=== PATIENT | male | born 1960 | race Caucasian/White ===

== ENCOUNTER 2020-12-11 13:25 | Emergency (ER) | payer MEDICAID, SELFPAY ==
[2020-12-11 13:43] VITALS: BP 121/80; PULSE 83; RESP 16; TEMP 36.8; O2SAT 96; BMI 22.6
[2020-12-11 13:56] VITALS: BP 201/94; PULSE 77; TEMP 36.8; O2SAT 97
--- NOTE | 2020-12-11 15:10 | ED_ITS ---
HPI - Allergic Reaction General: Chief complaint: Allergic Reaction Stated complaint: allergic rxn Time Seen by Provider: 12/11/20 14:08 Source: patient Mode of arrival: ambulatory Limitations: no limitations History of Present Illness: HPI narrative: Patient is a 60-year-old male who presents to ED today with a complaint of a possible allergic reaction to Bactrim. Patient states he was prescribed this antibiotic recently for a right foot wound. He states he took 1 dose of the antibiotic and approximately 3 to 4 hours later began noticing redness and itching to his palms and forearms as well as swelling to his penis. He states previously he has had a similar reaction to antibiotics with penile swelling. Patient is not having any dysuria or other urinary complaints. No penile drainage. No new sexual partners or concern for STDs. He has not noticed any sores or lesions. MD complaint: allergic reaction Exposure: other (antibiotic) Associated symptoms: Deny abdominal pain, nausea or vomiting Severity: mild Treatment prior to arrival: none Review of Systems Const: Denies: fever(s), chills, body aches, change in appetite, fatigue or malaise Eyes: Denies: change in vision ENMT: Denies: throat pain, odynophagia, swelling of lips/tongue or oral sores Card: Denies: chest pain Resp: Denies: dyspnea GI: Denies: abdominal pain, nausea, vomiting or diarrhea : Reports: other (penile swelling); Denies: flank pain, difficulty urinating, dysuria, urinary frequency, urinary urgency, urinary hesitancy, change in urine stream, urinary incontinence, genital pain, genital lesions, penile discharge, testicular pain, testicular mass or scrotal swelling Musc: Denies: neck pain, back pain, extremity pain or joint pain Skin/Breast: Reports: rash, pruritus, skin swelling (penis) and other (wound to R lateral foot) Neuro: Denies: headache(s), numbness in extremities, weakness in extremities or sensory changes PFSH ED PFSH: Social History Smoking and tobacco status: never smoked Alcohol intake: current Desire information about alcohol rehabilitation?: No Counseling given: No Desire information about substance/drug rehabilitation?: No History of recent travel: No Physical Exam Const: COMMON NORMALS: no acute distress, average body habitus, patient oriented x3, no limitations, healthy appearing, alert and well nourished GENERAL APPEARANCE: cooperative ORIENTATION/CONSCIOUSNESS: Yes awake, Yes oriented to person, Yes oriented to place and Yes oriented to time HENMT: COMMON NORMALS: normocephalic and atraumatic HEAD & SCALP: normocephalic and atraumatic Resp: COMMON NORMALS: normal respiratory effort and clear to auscultation bilaterally AUSCULTATION: clear to auscultation bilaterally Cardio: COMMON NORMALS: regular rate and regular rhythm RATE: regular rate RHYTHM: regular rhythm : COMMON NORMALS: Yes no CVA tenderness and Yes scrotum normal BLADDER/KIDNEY EXAM: Yes no CVA tenderness MALE GROIN/PERINEUM EXAM: No Genital lesions present PENIS: circumcised, edematous (coronal sulcus), not erythematous, no nodules, no papules, no pustules, no vesicles, no ulcerations and No Genital lesions present MEATUS: meatus normal and no meatla discharge SCROTUM: Yes testes descended bilaterally, No erythematous, No edematous and No scrotal swelling TESTES: Yes testicular lie normal Back/Pelvis: COMMON NORMALS: no CVA tenderness Extremity: NARRATIVE EXTREMITY EXAM: small 2cm shallow ulcer to R lateral foot; no surrounding cellulitis; no drainage/odor Neuro: CHEY COMA SCALE: document GCS findings [place] coma scale eye opening: Spontaneous [place] coma scale verbal response: Orientated Chey coma scale motor response: Obey commands [place] coma scale total score: 15 COMMON NORMALS: patient oriented x3, CN's II-XII intact bilaterally, moves all extremities, no focal motor deficits and no sensory deficits noted SENSORIUM/ORIENTATION: Yes alert, Yes oriented to person, Yes oriented to place and Yes oriented to time Skin: NARRATIVE SKIN EXAM: mild redness to bilateral palms/forearms Course Vital Signs: Vital signs: Vital Signs Temperature 98.2 F 12/11/20 13:56 Pulse Rate 77 12/11/20 13:56 Respiratory Rate 16 12/11/20 13:43 Blood Pressure 201/94 12/11/20 13:56 Pulse Oximetry 97 12/11/20 13:56 MDM - Allergic Reaction MDM Narrative: Medical decision making narrative: Patient with redness to his bilateral palms and forearms as well as penile swelling beginning 3 to 4 hours after a dose of Bactrim. Patient states he has had this similar reaction with penile swelling to antibiotics previously. I have never heard of penile swelling as a reaction to sulfa drugs but since symptoms started almost directly after drug initiation we have to assume it is from this. Recommend discontinuing this medication. He does not want to be on other antibiotics. He states he will treat his ulcer with the mupirocin ointment and soaking it in warm soap and water. Patient is very concerned about the penile swelling and he what he can do for this. He is not having any pain. Told patient we could attempt treating him with steroids-he is agreeable to this. Return to ED precautions given. Discharge Plan Discharge Patient Disposition: Home Clinical Impression: Wound of right ankle Qualifiers: Encounter type: initial encounter Qualified Code(s): S91.001A - Unspecified open wound, right ankle, initial encounter Adverse reaction to sulfa antibiotic Qualifiers: Encounter type: initial encounter Qualified Code(s): T37.0X5A - Adverse effect of sulfonamides, initial encounter Condition: Stable Prescriptions: New Medrol (Serg) 4 mg tablets,dose pack See Rx Instructions .ROUTE .COMPLEX Qty: 21 RF: 0 Discontinued sulfamethoxazole-trimethoprim [Bactrim DS] 800-160 mg tablet 1 tab PO BID Qty: 20 RF: 0 No Action ibuprofen 800 mg tablet 800 mg PO Q8H RF: 0 mupirocin 2 % ointment 1 applic topical TID Qty: 22 RF: 0 Discharge Orders: Discharge ED (Routine); Ordered 12/11/20 Ordered By: Marnie Rivas Coding Level of Care Code ED Model Making Supervisor for Silvio Rodríguez
== END 2020-12-11 15:56 | disposition home or self-care (01) ==
PROVIDERS: Emergency Provider Physician Assistant
DX: S91.001A Unspecified open wound, right ankle, initial encounter (principal); T37.0X5A Adverse effect of sulfonamides, initial encounter
CPT/HCPCS: 99281

== ENCOUNTER → 2021-07-14 15:24 | Outpatient (BNVA) | payer MEDICARE, MEDICAID, SELFPAY | PROVIDERS: PCP Nurse Practitioner Family; Visit Provider Nurse Practitioner Family | DX: R51.9 Headache, unspecified (principal); G89.29 Other chronic pain; Z13.6 Encounter for screening for cardiovascular disorders | CPT/HCPCS: 80053; 80061; 84443; 85025 ==

== ENCOUNTER 2021-10-23 20:02 | Emergency (ER) | payer MEDICARE, MEDICAID, SELFPAY ==
[2021-10-23 20:13] VITALS: BP 140/76; PULSE 80; RESP 18; TEMP 36.7; O2SAT 96; BMI 22.1
--- NOTE | 2021-10-23 20:33 | ED_ITS ---
HPI - Wound/Laceration General: Chief Complaint: Wound/Laceration Stated Complaint: neck lac Time Seen by Provider: 10/23/21 20:20 History of Present Illness: Patient is a 60-year-old male comes to the ED with laceration to neck. Injury occurred just prior to arrival. Patient is not giving much information about injury but says a dog caused a laceration on neck. He says the dog is fully vaccinated and has had its rabies vaccination as well. Patient said he needs an updated tetanus shot. Associated symptoms: Denies chills, fever(s), nausea or vomiting Review of Systems Const: Denies: fever(s), chills or fatigue Eyes: Denies: change in vision or eye discomfort ENMT: Denies: throat pain, odynophagia, nasal discharge or nasal congestion Card: Denies: chest pain, palpitations, edema, swelling of feet/ankles, dyspnea on exertion or orthopnea Resp: Denies: dyspnea, productive cough or non-productive cough GI: Denies: abdominal pain, nausea, vomiting, diarrhea, constipation or hematochezia : Denies: flank pain, difficulty urinating, dysuria or hematuria Musc: Denies: neck pain, back pain or extremity swelling Skin/Breast: Reports: new lesions (Laceration to anterior neck); Denies: rash Neuro: Denies: headache(s), numbness in extremities or weakness in extremities PFS ED PFSH: Medical History (Updated 10/24/21 @ 19:17 by ORTEGA Elizabeth) No pertinent family history Surgical History (Updated 10/24/21 @ 19:17 by ORTEGA Elizabeth) No pertinent past surgical history Social History Smoking and tobacco status: former smoker Second hand smoke exposure: No Smoking risk assessment/counseling performed?: No Alcohol intake: current Desire information about alcohol rehabilitation?: No Counseling given: No Desire information about substance/drug rehabilitation?: No Counseling given: No Lives independently: Yes Household members: none History of recent travel: No Physical Exam Const: COMMON NORMALS: no acute distress, patient oriented x3, healthy appear ing and alert GENERAL APPEARANCE: cooperative and comfortable HENMT: COMMON NORMALS: normocephalic HEAD & SCALP: normocephalic MOUTH: Normal oral and palatal mucosa present THROAT: posterior oropharynx normal and uvula midline Neck/C-Spine: COMMON NORMALS: supple GENERAL: Yes normal visual inspection Resp: COMMON NORMALS: normal respiratory effort, No retractions, No use of accessory muscles and clear to auscultation bilaterally AUSCULTATION: clear to auscultation bilaterally Cardio: COMMON NORMALS: regular rate, regular rhythm, S1 normal heart sound present, S2 normal heart sound present, No gallops present (Cardio), No clicks present (Cardio), No murmurs present (Cardio) and Peripheral pulses 2+ throughout RATE: regular rate RHYTHM: regular rhythm HEART SOUNDS: S1 normal heart sound present and S2 normal heart sound present PERIPHERAL PULSES: Peripheral pulses 2+ throughout GI: COMMON NORMALS: Normal to inspection, nondistended, normoactive bowel sounds present, Soft to palpation, non-tender and no masses PALPATION: Yes Soft to palpation : COMMON NORMALS: Yes no CVA tenderness BLADDER/KIDNEY EXAM: Yes no CVA tenderness Back/Pelvis: COMMON NORMALS: no CVA tenderness Neuro: COMMON NORMALS: patient oriented x3 and moves all extremities SENSORIUM/ORIENTATION: Yes alert Skin: NARRATIVE SKIN EXAM: Left anterior aspect of neck?0.75cm superficial linear laceration noted. No active bleeding. GENERAL SKIN EXAM: dry skin Procedures Laceration Laceration 1: Site: neck (Left anterior aspect) Side (If applicable): left Size (cm): 0.75 Description: linear and clean Depth: simple, single layer Pre-repair: irrigated extensively (With normal saline) Skin layer closed with: other (Dermabond) Technique: other (Dermabond) Course ED course: Patient's laceration site was irrigated extensively with normal saline and then some Dermabond was used to close laceration site. Vital Signs: Vital signs: Vital Signs Temperature 98.1 F 10/23/21 20:13 Pulse Rate 80 10/23/21 20:13 Respiratory Rate 18 10/23/21 20:13 Blood Pressure 140/76 10/23/21 20:13 Pulse Oximetry 96 10/23/21 20:13 MDM - Wound/Laceration Medical Decision Making Patient has a superficial 0.75 cm linear laceration on left anterior neck that he said was caused by his dog. Dog was fully vaccinated including rabies vaccination. Patient wanted updated tetanus. Vitals are stable patient appears in no acute distress or pain.Patient's laceration site was irrigated extensively with normal saline and then some Dermabond was used to close laceration site. Patient given tetanus here in the ED and Augmentin as well. He was diagnosed with dog bite and discharged home with a prescription for Augmentin. Return to ED precautions given. Follow-up with PCP in the next week for reevaluation. Patient understood agree with plan. Discharge Plan Discharge Patient Disposition: Home Clinical Impression: Dog bite Qualifiers: Encounter type: initial encounter Qualified Code(s): W54.0XXA - Bitten by dog, initial encounter Condition: Stable Prescriptions: New Augmentin 500-125 mg tablet 1 tab PO BID 7 Days Qty: 14 0RF No Action ibuprofen 800 mg tablet 800 mg PO Q8H 0RF mupirocin 2 % ointment 1 applic topical TID Qty: 22 0RF omeprazole 20 mg capsule,delayed release(DR/EC) 20 mg PO DAILY 0RF Excedrin Extra Strength 250-250-65 mg tablet 1 tab PO Q6H PRN (Reason: pain) Qty: 30 5RF montelukast [Singulair] 10 mg tablet 10 mg PO DAILY Qty: 30 0RF methocarbamol 500 mg tablet 500 mg PO BEDTIME Qty: 30 5RF loratadine 10 mg capsule 10 mg PO DAILY Qty: 30 5RF sildenafil 100 mg tablet 100 mg PO DAILY PRN (Reason: sexual activity) Qty: 10 5RF Rx Instructions: administer 30 minutes to 4 hours before activity Mucinex 1,200 mg tablet extended release 12hr 1,200 mg PO BID Qty: 60 5RF Discharge Orders: Discharge ED (Routine); Ordered 10/23/21 Ordered By: Corby Browne Discharge Diet: Regular Discharge Activity: Increase activity as tolerated Patient Instructions: Animal Bite (ED) Activity Restrictions/Additional Instructions: Follow-up with medical provider as directed. Take medications as prescribed. Return to the ER or your medical provider if condition worsens. Please read and understand discharge instructions. Thank you for choosing [facility] for your healthcare needs today. Please realize this is an emergency room and that we are providing you with a medical screening exam and this may not be complete and all inclusive of all the testing and or work up that you may need to determine your ailment or severity of your illness. It is very important that you follow up as instructed or that you return to the Emergency Department should you have concerns or if your condition changes or worsens in any way. Coding Level of Care Code ED Senior Validation Engineer for Silvio Fwpaul Exam Comprehensive
[2021-10-23] MEDS: amoxicillin-clav 500-125 mg Tablet 1 TAB PO (21:38)
[2021-10-23] MEDS: tetanus-dipt-pertussis 0.5 mL SDV IM (21:38)
== END 2021-10-23 22:51 | disposition home or self-care (01) ==
PROVIDERS: Emergency Provider Physician Assistant
DX: S11.95XA Open bite of unspecified part of neck, initial encounter (principal); W54.0XXA Bitten by dog, initial encounter; Z87.891 Personal history of nicotine dependence; Z23 Encounter for immunization
CPT/HCPCS: 12001; 90471; 90715; 99283

== ENCOUNTER → 2022-04-25 16:10 | Outpatient (BNVA) | payer MEDICARE, MEDICAID, SELFPAY | PROVIDERS: Visit Provider Family Medicine | DX: M79.641 Pain in right hand (principal) | CPT/HCPCS: 73130 ==

== ENCOUNTER → 2022-05-19 14:26 | Outpatient (BNVA) | payer MEDICARE, MEDICAID, SELFPAY | PROVIDERS: Visit Provider Nurse Practitioner Family | DX: R30.0 Dysuria (principal); Z12.11 Encounter for screening for malignant neoplasm of colon; R39.11 Hesitancy of micturition; R10.9 Unspecified abdominal pain; R35.0 Frequency of micturition | CPT/HCPCS: 80053; 81000; 84153; 85025 ==

== ENCOUNTER 2022-12-26 18:54 | Emergency (ER) | payer MEDICARE, MEDICAID, SELFPAY ==
[2022-12-26 18:56] VITALS: BP 147/93; PULSE 86; RESP 17; O2SAT 94; BMI 24.2
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
== END 2022-12-26 20:52 | disposition home or self-care (01) ==
PROVIDERS: Emergency Provider Emergency Medicine
DX: S20.211A Contusion of right front wall of thorax, initial encounter (principal); Z87.891 Personal history of nicotine dependence; W01.0XXA Fall on same level from slipping, tripping and stumbling without subsequent striking against object, initial encounter
CPT/HCPCS: 71101; 99283

== ENCOUNTER 2023-08-30 14:33 | Emergency (ER) | payer MEDICARE, MEDICAID, SELFPAY ==
[2023-08-30 14:34] VITALS: BP 123/77; PULSE 71; RESP 18; TEMP 36.7; O2SAT 95; BMI 25.8
--- NOTE | 2023-08-30 14:49 | W.ED.EYEPROB ---
HPI - Eye Problem General: Chief complaint: Eye Problems Stated complaint: left eye pain Time Seen by Provider: 08/30/23 14:47 History of Present Illness: 62-year-old male patient comes in today for complaints of corneal scratch. Patient believes that during the night he got something in his eye and rubbed his eye during the night and has been uncomfortable to his left eye. Patient cannot see anything in his eye. Patient reports not remembering what he got in his eye. Patient appears nontoxic. Review of Systems General: Reports: 10 or more systems reviewed and unremarkable except in HPI and below Eyes: Reports: eye discomfort PFS ED PFSH: Medical History No pertinent family history Surgical History No pertinent past surgical history Social History Smoking and tobacco/nicotine status: former use of tobacco/nicotine Second hand smoke exposure: No Alcohol intake: current Substance/Drug Use: never Lives independently: Yes Household members: none Physical Exam Const: COMMON NORMALS: alert HENMT: COMMON NORMALS: normocephalic HEAD & SCALP: normocephalic Eye: COMMON NORMALS: Equal, round and reactive pupils present and conjunctivae normal VISUAL ACUITY: Yes acuity normal ALIGNMENT: Yes alignment normal EYELID: eyelids normal CONJUNCTIVA: Yes conjunctivae normal CORNEA: Yes corneas normal and fluorescein used PUPIL: Yes Equal, round and reactive pupils present Neck/C-Spine: COMMON NORMALS: full ROM Resp: COMMON NORMALS: normal respiratory effort and clear to auscultation bilaterally AUSCULTATION: clear to auscultation bilaterally Cardio: COMMON NORMALS: regular rate RATE: regular rate Back/Pelvis: COMMON NORMALS: thoracic and lumbar spine normal to inspection Extremity: COMMON NORMALS: full ROM Neuro: SENSORIUM/ORIENTATION: Yes alert Skin: COMMON NORMALS: turgor normal GENERAL SKIN EXAM: turgor normal Course Vital Signs: Vital signs: Vital Signs Temperature 98.0 F 08/30/23 14:34 Pulse Rate 71 08/30/23 14:34 Respiratory Rate 18 08/30/23 14:34 Blood Pressure 123/77 08/30/23 14:34 Pulse Oximetry 95 08/30/23 14:34 Oxygen Delivery Me thod Room Air 08/30/23 14:34 MDM - Eye Problem Medical Decision Making Patient presents today with complaints of left eye irritation. On exam patient appears nontoxic. Patient with resolution of symptoms after tetracaine application. No abrasion no foreign body was noted. Differential diagnosis includes corneal abrasion, foreign body, conjunctivitis, iritis. No signs of severe illness or injury is noted. Patient was given Maxitrol eyedrops to use 1 drop 4 times a day for the next 7 days for treatment. Patient was recommended to follow-up with primary care for further instructions. Return to ED for new concerns. No radiology studies performed this visit Discharge Plan Discharge Patient Disposition: Home Clinical Impression: Corneal abrasion Qualifiers: Encounter type: initial encounter Laterality: left Qualified Code(s): S05.02XA - Injury of conjunctiva and corneal abrasion without foreign body, left eye, initial encounter Condition: Stable Prescriptions: No Action (DME) hand and wrist splint See Rx Instructions .Route .MEDSUPPLY Qty: 1 0RF Rx Instructions: As directed famotidine [Pepcid] 40 mg tablet 40 mg PO BID Qty: 60 3RF diclofenac sodium 75 mg tablet,delayed release (DR/EC) 75 mg PO BID Qty: 60 2RF azithromycin [Zithromax Z-Serg] 250 mg tablet See Rx Instructions PO .COMPLEX Qty: 6 0RF Rx Instructions: take 500 mg today (day 1), then 250 mg for 4 days (days 2-5) PO Discharge Orders: Discharge ED (Routine); Ordered 08/30/23 Ordered By: Jabari Whitman Discharge Diet: Usual diet Discharge Activity: Increase activity as tolerated Patient Instructions: Corneal Abrasion (ED) Activity Restrictions/Additional Instructions: Follow-up with eye doctor 3 days. Use tetracaine once every 3 hours as needed for pain for 2 days. Use Maxitrol eyedrops 1 drop 4 times a day while awake for the next 7 days. Coding Level of Care Code ED Fuel Storage Technician for Silvio Rodríguez
[2023-08-30] MEDS: fluorescein 1 mg Strip EYE-LEFT (14:51)
[2023-08-30] MEDS: tetracaine 0.5% Op Soln 4 mL Btl 1 DROP EYE-LEFT (14:51)
[2023-08-30] MEDS: neomycin-poly-dex Op 5 mL Btl 2 DROP EYE-LEFT (14:51)
== END 2023-08-30 15:11 | disposition home or self-care (01) ==
PROVIDERS: Emergency Provider Nurse Practitioner Family
DX: S05.02XA Injury of conjunctiva and corneal abrasion without foreign body, left eye, initial encounter (principal); Z87.891 Personal history of nicotine dependence; X58.XXXA Exposure to other specified factors, initial encounter
CPT/HCPCS: 99283

== ENCOUNTER 2023-09-24 10:19 | Emergency (ER) | payer MEDICARE, MEDICAID, SELFPAY ==
[2023-09-24 10:44] VITALS: BP 129/89; PULSE 62; RESP 18; TEMP 36.8; O2SAT 97; BMI 25.8
--- NOTE | 2023-09-24 10:54 | W.ED.BACK ---
HPI - Back Pain/Injury General: Chief Complaint: Back Pain/Injury Stated Complaint: low back pain Time Seen by Provider: 09/24/23 10:45 History of Present Illness: Patient says he has tweaked his back again. This happens every once in a while and when it does he can barely walk at times because of the pain. He says is not as bad as it has been in the past but still he needs something to make sure he can take care of business . No saddle numbness, no urinary retention or incontinence, no focal motor deficit, no sensory deficit. no recent fever. no cough. no shortness of breath. no chest pain. no abdominal pain. no nausea or vomiting. no dysuria. no altered mental status. no edema. Review of Systems Narrative: Constitutional symptoms: Negative except as documented in HPI. Skin symptoms: Negative except as documented in HPI. Eye symptoms: Negative except as documented in HPI. ENMT symptoms: Negative except as documented in HPI. Respiratory symptoms: Negative except as documented in HPI. Cardiovascular symptoms: Negative except as documented in HPI. Gastrointestinal symptoms: Negative except as documented in HPI. Genitourinary symptoms: Negative except as documented in HPI. Musculoskeletal symptoms: Negative except as documented in HPI. Neurologic symptoms: Negative except as documented in HPI. Psychiatric symptoms: Negative except as documented in HPI. Endocrine symptoms: Negative except as documented in HPI. PFSH ED PFSH: Medical History No pertinent family history Surgical History No pertinent past surgical history Social History Smoking and tobacco/nicotine status: former use of tobacco/nicotine Second hand smoke exposure: No Alcohol intake: current Substance/Drug Use: never Lives independently: Yes Household members: none Physical Exam Narrative: EXAM NARRATIVE: General: Alert, no acute distress. Head: Normocephalic Neck: Trachea midline Eye: Extraocular movements are intact. Ears, nose, mouth and throat: Oral mucosa moist Respiratory: Respirations are non-labored Musculoskeletal: Normal ROM Back: no step off, no focal tenderness, some paraspinal muscle tenderness Neurological: Alert and oriented to person, place, time, and situation, No focal neurological deficit observed. Psychiatric: Cooperative, appropriate mood & affect. Course Vital Signs: Vital signs: Vital Signs Temperature 98.2 F 09/24/23 10:44 Pulse Rate 62 09/24/23 10:44 Respiratory Rate 18 09/24/23 10:44 Blood Pressure 129/89 09/24/23 10:44 Pulse Oximetry 97 09/24/23 10:44 Oxygen Delivery Me thod Room Air 09/24/23 10:44 MDM - Back Pain/Injury Medical Decision Making Assessment and plan: Low back pain ? IM Toradol and IM Decadron in the emergency room - Discharged home - Discussed plan with patient. Answered any questions. - Evaluation and treatment of this problem were appropriate in the emergency setting. No radiology studies performed this visit Discharge Plan Discharge Patient Disposition: Home Clinical Impression: Strain of lumbar region Qualifiers: Encounter type: initial encounter Qualified Code(s): S39.012A - Strain of muscle, fascia and tendon of lower back, initial encounter Condition: Stable Prescriptions: New cyclobenzaprine 10 mg tablet 10 mg PO Q8H Qty: 20 0RF prednisone 20 mg tablet 60 mg PO DAILY Qty: 20 0RF Rx Instructions: 3 tabs (60 mg) x 3 days. 2 tabs (40 mg) x 3 days. 1 tab (20 mg) x 3 days. 1/2 tab (10 mg) x 4 days diclofenac sodium 50 mg tablet,delayed release (DR/EC) 50 mg PO Q12H Qty: 20 0RF No Action (DME) hand and wrist splint See Rx Instructions .Route .MEDSUPPLY Qty: 1 0RF Rx Instructions: As directed famotidine [Pepcid] 40 mg tablet 40 mg PO BID Qty: 60 3RF diclofenac sodium 75 mg tablet,delayed release (DR/EC) 75 mg PO BID Qty: 60 2RF azithromycin [Zithromax Z-Serg] 250 mg tablet See Rx Instructions PO .COMPLEX Qty: 6 0RF Rx Instructions: take 500 mg today (day 1), then 250 mg for 4 days (days 2-5) PO Discharge Orders: Discharge ED (Routine); Ordered 09/24/23 Ordered By: Kiana Arellano Discharge Diet: Usual diet Discharge Activity: Increase activity as tolerated Patient Instructions: Back Pain (ED) Activity Restrictions/Additional Instructions: Thank you for choosing [facility] for your healthcare needs today. Please realize this is an emergency room and that we are providing you with a medical screening exam and this may not be complete and all inclusive of all the testing and or work up that you may need to determine your ailment or severity of your illness. You have been screened and evaluated and felt safe for discharge. Health conditions do change or evolve sometimes and as such it is important that you follow up with your Primary Doctor to be re checked, 3-5 days is a general good time frame for follow up. You are always welcome to return to the ED for re assessment if your symptoms are worsening or you have new concerns Coding Level of Care Code ED Customer Service Professional for Slivio Rodríguez
[2023-09-24 11:12] VITALS: BP 129/89; PULSE 62; O2SAT 95
[2023-09-24] MEDS: ketorolac 60 mg/2 mL INJ IM (11:14)
[2023-09-24] MEDS: dexamethasone 10 mg/mL INJ IM (11:14)
[2023-09-24 11:24] VITALS: BP 129/89; PULSE 62; RESP 18; TEMP 36.8; O2SAT 95
== END 2023-09-24 11:26 | disposition home or self-care (01) ==
PROVIDERS: Emergency Provider Emergency Medicine
DX: S39.012A Strain of muscle, fascia and tendon of lower back, initial encounter (principal); Z87.891 Personal history of nicotine dependence; X58.XXXA Exposure to other specified factors, initial encounter
CPT/HCPCS: 96372; 99284; J1100; J1885

== ENCOUNTER → 2023-10-25 11:15 | Outpatient (BNVA) | payer MEDICARE, MEDICAID, SELFPAY | PROVIDERS: Visit Provider Surgery | DX: Z98.890 Other specified postprocedural states (principal); Z90.49 Acquired absence of other specified parts of digestive tract | CPT/HCPCS: 99024 ==

== ENCOUNTER → 2023-10-26 10:33 | Outpatient (BNVA) | payer MEDICARE, MEDICAID, SELFPAY | PROVIDERS: PCP Nurse Practitioner Family; Visit Provider Nurse Practitioner Family | DX: Z13.6 Encounter for screening for cardiovascular disorders (principal); R97.20 Elevated prostate specific antigen [PSA] | CPT/HCPCS: 80053; 80061; 84153; 85025 ==

== ENCOUNTER 2023-11-11 13:55 | Emergency (ER) | payer MEDICARE, MEDICAID, SELFPAY ==
[2023-11-11 14:01] VITALS: BP 138/77; PULSE 64; RESP 17; TEMP 36.6; O2SAT 95; BMI 24.2
[2023-11-11 14:24] VITALS: BP 108/80; PULSE 78; O2SAT 94
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
[2023-11-11 15:19] VITALS: BP 108/80; PULSE 78; RESP 17; TEMP 36.6; O2SAT 94
== END 2023-11-11 15:18 | disposition home or self-care (01) ==
PROVIDERS: Emergency Provider Physician Assistant
DX: H92.01 Otalgia, right ear (principal); Z87.891 Personal history of nicotine dependence
CPT/HCPCS: 99283

== ENCOUNTER → 2023-11-13 10:01 | Outpatient (BNVA) | payer MEDICARE, MEDICAID, SELFPAY | PROVIDERS: PCP Nurse Practitioner Family; Visit Provider Nurse Practitioner Family | DX: M79.18 Myalgia, other site (principal); R53.83 Other fatigue; D72.829 Elevated white blood cell count, unspecified | CPT/HCPCS: 82306; 82607; 85025 ==

== ENCOUNTER → 2024-01-01 14:32 | Outpatient (BNVA) | payer MEDICARE, MEDICAID, SELFPAY | PROVIDERS: PCP Nurse Practitioner Family; Visit Provider Family Medicine | DX: M54.50 Low back pain, unspecified (principal); G89.29 Other chronic pain; N39.0 Urinary tract infection, site not specified | CPT/HCPCS: 81003 ==

== ENCOUNTER → 2024-01-29 14:21 | Outpatient (BNVA) | payer MEDICARE, MEDICAID, SELFPAY | PROVIDERS: PCP Nurse Practitioner Family; Visit Provider Nurse Practitioner Family | DX: M79.641 Pain in right hand (principal); M79.89 Other specified soft tissue disorders | CPT/HCPCS: 73130 ==

== ENCOUNTER → 2024-02-20 13:25 | Outpatient (BNVA) | payer MEDICARE, MEDICAID, SELFPAY | PROVIDERS: PCP Nurse Practitioner Family; Visit Provider Orthopaedic Surgery | DX: M25.531 Pain in right wrist (principal); M79.641 Pain in right hand | CPT/HCPCS: 73110; 73130; 99203 ==

== ENCOUNTER → 2024-11-28 15:54 | Outpatient (BNVA) | payer MEDICARE, MEDICAID, SELFPAY | PROVIDERS: PCP Family Medicine; Visit Provider Family Medicine | DX: Z11.4 Encounter for screening for human immunodeficiency virus [HIV] (principal); Z11.59 Encounter for screening for other viral diseases; Z13.6 Encounter for screening for cardiovascular disorders; Z12.5 Encounter for screening for malignant neoplasm of prostate; K21.9 Gastro-esophageal reflux disease without esophagitis; M79.601 Pain in right arm; G89.29 Other chronic pain; M19.90 Unspecified osteoarthritis, unspecified site | CPT/HCPCS: 80053; 80061; 86803; 87806; G0103 ==

== ENCOUNTER 2025-01-16 10:00 | Outpatient (CLI) | payer MEDICARE, MEDICAID, SELFPAY ==
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
== END 2025-01-16 10:01 | disposition home or self-care (01) ==
PROVIDERS: PCP Family Medicine; Visit Provider Family Medicine
DX: M47.812 Spondylosis without myelopathy or radiculopathy, cervical region (principal); M25.78 Osteophyte, vertebrae
CPT/HCPCS: 72040